=== PATIENT | female | born 1950 ===

== ENCOUNTER 2017-11-30 12:17 | Emergency (ER) | payer OTHER ==
[~2017-11-30] VITALS: Ht 149.9 cm; Wt 50.8 kg
[~2017-11-30 12:17] MED LIST: KETO10TA2 PO; LEXAPRO5 MG; MEDROLPACK PO; ORPH100T PO; WELLBUTRIN XL150 M1
== END 2017-11-30 22:24 | disposition home or self-care (01) ==
LOC: ER 12:17
DX: K52.89 Other specified noninfective gastroenteritis and colitis (principal); E87.6 Hypokalemia

== ENCOUNTER 2017-12-01 14:25 | Emergency (ER) | payer OTHER ==
[~2017-12-01] VITALS: Ht 152.4 cm; Wt 49.4 kg
== END 2017-12-01 22:56 | disposition home or self-care (01) ==
LOC: ER 14:25
DX: K52.89 Other specified noninfective gastroenteritis and colitis (principal); K29.60 Other gastritis without bleeding

== ENCOUNTER 2018-01-13 13:39 | Outpatient (CLI) | payer OTHER | END 2018-01-13 17:00 | disposition home or self-care (01) | LOC: MRI 13:39 | DX: T14.8XXA Other injury of unspecified body region, initial encounter (principal); M67.451 Ganglion, right hip; M67.452 Ganglion, left hip | CPT/HCPCS: 73522; 73720; A9579; 73719 ==